=== PATIENT | male | born 1985 | race Two or more races ===

== ENCOUNTER 2020-01-27 20:46 | Emergency (ER) | payer SELFPAY ==
[~2020-01-27] VITALS: Ht 167.6 cm; Wt 83.9 kg
--- NOTE | 2020-01-27 21:11 | NUR ---
PT CAME TO ER BED 2 C/O "FEELS LIKE MY HEART IS SKIPPING A BEAT OR MISSING ONE". PT STATES HIS HEART IS BEATING FAST OR SLOW, AND WHENEVER HE TAKES A BREATH, IT MAKES HIM COUGH. PT DENIES PAIN. AAOX4. NO SOB. BREATHING EVENLY AND UNLABORED. CONNECTED TO ASSISTANT [employer] PROFESSIONAL.
[2020-01-27 21:19] LABS: BASOPHILS # (AUTO) 0.1 /CMM (0.0-0.2); BASOPHILS % (AUTO) 1.5 % (0.0-2.0); EOSINOPHILS % (AUTO) 2.8 % (0.0-6.0); HEMATOCRIT 47 % (39-51); HEMOGLOBIN 16.2 g/dL (13.5-17.5); LYMPHOCYTES # (AUTO) 3.8 /CMM (0.8-4.8); LYMPHOCYTES % (AUTO) 44.1 % (20.0-44.0); MEAN CORPUSCULAR HGB CONC 35 g/dl (31.0-36.0); MEAN CORPUSCULAR VOLUME 86 fL (80-96); MONOCYTES # (AUTO) 0.8 /CMM (0.1-1.30); MONOCYTES % (AUTO) 9.2 % (2.0-12.0); NEUTROPHILS # (AUTO) 3.6 /CMM (1.8-8.9); NEUTROPHILS % (AUTO) 42.4 % (43.0-81.0); PLATELET COUNT (AUTO) 285 /CMM (150-450); WHITE BLOOD COUNT (AUTO) 8.6 K/uL (4.3-11.0)
[2020-01-27] MEDS ORDERED: IV NS 0.9% 1,000 ML BAG IV ONE (21:30)
[2020-01-27 21:33] LABS: ALANINE AMINOTRANSFERASE 67 U/L (12-78); ALKALINE PHOSPHATASE 69 U/L (46-116); ASPARTATE AMINOTRANSFERASE 34 U/L (15-37); BILIRUBIN,TOTAL 0.4 mg/dL (0.2-1.0); CARBON DIOXIDE 28 mmol/L (21-32); CHLORIDE 102 mmol/L (98-107); CREATININE 1.1 mg/dL (0.6-1.3); GLUCOSE 124 mg/dL (74-106); POTASSIUM 3.5 mmol/L (3.5-5.1); SODIUM SERUM 140 mmol/L (136-145); TOTAL PROTEIN, SERUM 7.7 g/dL (6.4-8.2); UREA NITROGEN, BLOOD 24 mg/dL (7-18)
[2020-01-27] MEDS ORDERED: IV NS 0.9% 250 ML IV ONE (21:45)
[2020-01-27] MEDS ORDERED: IOHEXOL-350 100 ML VIAL IV ONE (21:45)
[2020-01-27] MEDS ORDERED: CT SWABBABLE VALVE TRANS SET 1 EA INFUS.SET MC ONE (21:45)
--- NOTE | 2020-01-27 22:07 | NUR ---
RETURNED FROM CT
[2020-01-28 00:14] VITALS: BP 117/66
== END 2020-01-28 00:18 | disposition home or self-care (01) ==
LOC: ER 20:50
DX: R07.89 Other chest pain (principal)
CPT/HCPCS: 36415; 71045; 71275; 80048; 80076; 84443; 84484; 85025; 85730; 93005; 99285; J7030; J7050; Q9967